=== PATIENT | male | born 1980 | race Caucasian/White ===

== ENCOUNTER → 2016-11-21 | Outpatient (CLI) | payer BC | LOC: KCIC MRI 11:30 | PROVIDERS: ATTEND Family Medicine | DX: Z53.9 Procedure and treatment not carried out, unspecified reason (principal) ==

== ENCOUNTER → 2016-11-27 | Outpatient (CLI) | payer BC ==
--- NOTE | 2016-11-27 12:44 | KCIC ---
EYE FOR FOREIGN BODY History: Clearance for MRI, history of aneurysm Comparison: None. Findings: There has been right craniotomy. No metallic foreign body is identified in the region of orbits. Impression: 1. No metallic foreign body is identified in the region of orbits. Electronically signed by: Tyrone Beckett MD (11/27/2016 12:41 PM) [id number]
--- NOTE | 2016-11-27 13:25 | KCIC ---
MRI Lumbar Spine without contrast History: Low back pain radiating to the left leg, weakness of the left leg, symptoms for one week Technique: Multiplanar, multi sequential noncontrast MR imaging was performed of the lumbar spine. Contrast: None Comparison: None Findings: There is some motion degradation. Lumbar vertebral body stature and AP alignment are adequate. There is moderate degenerative disc disease at L5-S1 and to lesser degree at L4-5. There is no significant marrow edema. Conus terminates at L1. L2-L3: Spinal canal and neural foramina are adequate. There is mild prominence of posterior epidural fat and facet hypertrophic change. L3-L4: There is mild facet hypertrophic change and prominence of posterior epidural fat. Spinal canal and neural foramina are adequate. L4-L5: There is [id number] facet degenerative change greater on the left. There is mild buckling of the ligamentum flavum. There is disc osteophyte complex and superimposed more central protrusion estimated at 10 mm transverse by 4 mm AP by 7 mm CC. There is mild indentation upon the ventral thecal sac. Combination of findings results in [id number], right greater than left lateral recess stenosis. Neural foramina are adequate. L5-S1: There is extrusion extending below the intervertebral disc space eccentric to the left lateral recess estimated at approximately 8 mm transverse by 6 mm AP by approximately 7-8 mm CC. There is impingement of the descending left S1 nerve root in the left lateral recess, moderate to severe left lateral recess stenosis. There is moderate narrowing of the central canal. Neural foramina are adequate. Impression: 1. Extrusion extending below the L5-S1 intervertebral disc space in the left lateral recess results in impingement of the descending left S1 nerve root. 2. There is mild to moderate right greater than left lateral recess stenosis at L4-5 in part by protrusion. 3. There is moderate degenerative disc disease at L5-S1 and to lesser degree at L4-5. Electronically signed by: Tyrone Beckett MD (11/27/2016 1:22 PM) [id number]
== END | disposition home or self-care (01) ==
LOC: KCIC MRI 12:21
PROVIDERS: ATTEND Family Medicine
DX: M48.06 Spinal stenosis, lumbar region (principal); M47.896 Other spondylosis, lumbar region; M51.37 Other intervertebral disc degeneration, lumbosacral region; Z98.890 Other specified postprocedural states
CPT/HCPCS: 70030; 72148